=== PATIENT | female | born 1990 | race Caucasian/White ===

== ENCOUNTER 2019-08-16 02:02 | Inpatient (IN) | payer MEDICAID, SELFPAY ==
[2019-08-16] VITALS (10 sets, daily range): BP systolic 135–153; BP diastolic 73–97; PULSE 88–127; RESP 18–24; TEMP 36.2–37.1; O2SAT 90–92; BMI 40.7
--- NOTE | ~2019-08-16 | CT_ITS ---
EXAMINATION: CTA chest PE protocol DATE: 08/16/2019 12:24 INDICATION: Shortness of breath, tachycardia, and elevated d-dimer TECHNIQUE: Computed tomography angiography (CTA) of the chest was performed with 100 mL Omnipaque-350 intravenous contrast timed to evaluate the pulmonary arteries. Coronal maximum intensity projection 3D-reconstructions were created by the technologist. The dose-length product (DLP) was 621.27 mGy-cm. Automated exposure control and iterative reconstruction technique were employed. COMPARISON: None. FINDINGS: The pulmonary arteries are well-opacified. No pulmonary embolism is identified. There are a irspace opacities throughout the lungs, worst in the left lower lobe. There is no pleural effusion or pneumothorax. The heart size is normal. There is mild right paratracheal lymphadenopathy, likely marjorie ctive. The visualized osseous structures are unremarkable. IMPRESSION: 1. No pulmonary embolism. 2. Multifocal airspace opacities, worst in the left lower lobe, consistent with pneumonia. Reviewed, dictated and finalized at location A. [employer]
--- NOTE | ~2019-08-16 | XR_ITS ---
EXAMINATION: XR chest 2V DATE: 08/16/2019 03:04 INDICATION: Cough and wheezing TECHNIQUE: PA and lateral views of the chest are obtained. COMPARISON: 09/12/2014 FINDINGS: There are mild airspace opacities of the lung bases. There is no pleural effusion or pneumo thorax. The cardiomediastinal silhouette is normal. There is mild thoracic spondylosis. IMPRESSION: 1. Mild airspace opacities of the lung bases, consistent with atelectasis versus pneumonia. Reviewed, dictated and finalized at location A. [employer] IMPRESSION: 1. Mild airspace opacities of the lung bases, consistent with atelectasis versu s pneumonia.
--- NOTE | 2019-08-16 02:09 | ED.URI ---
HPI - URI/Sore Throat General Chief Complaint: Upper Respiratory Infection Stated Complaint: fever Source: patient Mode of arrival: ambulatory Limitations: no limitations History of Present Illness HPI Narrative: Ms. Ritter is a 28 year old woman who presents with cold sx of 2 days with cough, congestion, sore throat, body aches and fever. She does have a history of asthma. She does feel that she is wheezing today. No sick contacts. No n/v/d. Related Data Allergies Allergy/AdvReac Type Severity Reaction Status Date / Time tetracycline Allergy Intermediate Unverified 01/20/18 13:41 Review of Systems Constitutional: Constitutional: Reports body ache(s), Denies fatigue, Denies fever(s) and Denies weakness Eyes: Eyes: Denies blurry vision, Denies itchy eyes and Denies other visual disturbances ENT: Reports as per HPI, Denies dizziness, Denies hearing loss, Reports nasal congestion, Reports nasal discharge, Reports sinus pressure and Denies sore throat Cardiovascular: Cardiovascular: Denies chest pain and Denies dyspnea Respiratory: Respiratory: Reports cough, Denies dyspnea and Denies wheezing Gastrointestinal: Gastrointestinal: Denies diarrhea, Denies nausea and Denies vomiting Genitourinary: Genitourinary: Denies difficulty starting urination, Denies dysuria and Denies urinary urgency Musculoskeletal: Musculoskeletal: Denies arthralgias and Denies muscle weakness Integumentary/Breasts: Skin/Breast: Denies rash and Denies wounds Neurologic: Denies dizziness and Denies weakness Psychiatric: Psychiatric: Denies anxiety, Denies depression and Denies suicidal ideation Endocrine: Endocrine: Denies cold intolerance, Denies fatigue and Denies heat intolerance Allergic/Immunologic: Allergic/Immunologic: Denies itchy eyes, Denies seasonal rhinorrhea and Denies wheezing Exam Const: General: cooperative, healthy appearing, no acute distress, well developed and alert; No poor hygiene Nutritional Appearance: average body habitus Orientation/consciousness: oriented to person, oriented to place and oriented to time Limitations: No physical limitations HENMT: Head: normal to inspection Ears: hearing grossly normal bilaterally and external ears normal General nose exam: external nose normal and nasal discharge clear Face and sinus: face symmetric and no abrasions Mouth: Yes oral mucosae normal, Yes lip normal, Yes tongue normal, Yes moist mucous membranes and No drooling Teeth and gingiva: dentition normal and gingiva normal Throat: uvula midline and posterior oropharynx abnormal erythema; no exudates Eyes: General: appearance normal, both eyes and all related structures Periorbital: periorbital findings normal Eyelids: eyelids normal Conjunctivae: conjunctivae normal Pupils: PERRL EOM: EOM intact bilaterally Neck: Neck: normal visual inspection Resp: Effort & Inspection: able to speak in complete sentences and no respiratory distress Auscultation: no crackles, no rhonchi and wheezes Cardio: Jugular venous distension: no JVD Rate: regular rate Rhythm: regular rhythm Heart sounds: no gallops, no murmurs and no rubs Skin: General skin exam: no rashes or lesions noted Trauma: no lacerations or abrasions Neuro: General: oriented to person, oriented to place and oriented to time Cranial nerves: Yes CN's II-XII intact bilaterally and Yes PERRL Cognition (Neuro): normal cognition Speech: normal speech Psych: Appearance: grossly normal Mental Status: mental status grossly normal Affect: normal affect Thought process: normal thought process Course Course Emergency Course: Primary survey revealed a hemodynamically stable woman in no acute distress. Exam shows URI signs and wheezing. Labs, CXR and treatment ordered. Reevaluation(s) Reevaluation #1: Vitals stable. O2 sats were 89 on RA. Requires oxygen to keep sats > 90%. Exacerbation of asthma as working dx. Admission advised. Patient agrees. Time: 03:08 Discharge Plan Discha
[2019-08-16] MEDS: IPRATROPIUM 0.5 MG/ALBUTEROL SULFATE 2.5 MG AMPUL.NEB 3 ML INHALATION ×3 (02:35→19:10)
[2019-08-16 02:42] LABS: Hematocrit 44.8 % (35.0-49.0); Hemoglobin 15.4 g/dL (12.0-15.0); Mean Corpuscular HGB Conc 34.4 g/dL (32.0-36.0); Mean Corpuscular Hemoglobin 31.9 pg (27.0-31.0); Mean Corpuscular Volume 92.8 fL (78.0-102.0); Mean Platelet Volume 9.9 fl (9.2-11.8); Platelet Count Result 250 K/mm3 (150-420); Red Blood Count 4.83 M/mm3 (4.20-5.40); Red Cell Distribution Width 11.5 % (11.6-14.4); White Blood Count 14.7 K/mm3 (4.8-10.8)
[2019-08-16] MEDS: methylPREDNISolone SOD SUCC 125 MG VIAL IV PUSH (02:50)
[2019-08-16 02:59] LABS: Alanine Aminotransferase 26 U/L (14-59); Albumin Level 4.3 g/dL (3.4-5.0); Alkaline Phosphatase 71 U/L (46-116); Anion Gap 18.5 mmol/L (7-16); Aspartate Amino Transferase 21 U/L (15-37); Bilirubin,Total 0.7 mg/dL (0.00-1.00); Blood Urea Nitrogen 12 mg/dL (7-18); CRP 4.3 mg/dL (0.0-0.9); Calcium 8.8 mg/dL (8.5-10.1); Carbon Dioxide 23 mmol/L (21-32); Chloride 105 mmol/L (98-108); Estimated CRCL calculation 117 ml/min; Estimated Glomerular Filt Rate > 60; Glucose 110 mg/dL (70-99); Osmolality Calculated 296 mOsm/kg (285-295); Potassium 3.5 mmol/L (3.5-5.1); Sodium 143 mmol/L (136-145); Total Protein 7.9 g/dL (6.4-8.2)
[2019-08-16 03:02] LABS: Influenza Control Valid (Valid); Lactic Acid 1.5 mmol/L (0.4-2.0)
--- NOTE | 2019-08-16 03:09 | PC.NURSE ---
erp discussed plan of care regarding admission. pt agrees. call to floor for bed assignment
[2019-08-16] MEDS: ONDANSETRON INJ 4 MG/2 ML VIAL IV PUSH (03:17)
--- NOTE | 2019-08-16 03:46 | PC.NURSE ---
PT TAKEN TO FLOOR PER WHEELCHAIR WITH RISA HERBERT. UPDATE ON ALL MEDS AND CARE GIVEN IN ER. PT STABLE AND ALERT.
--- NOTE | 2019-08-16 03:47 | PC.NURSE ---
0315 PT DRY HECECIING, ERP AWARE. ORDER FOR ELIZ.
[2019-08-16] MEDS: ALBUTEROL SULFATE NEB 2.5 MG/3 ML INH INHALATION (05:16)
--- NOTE | 2019-08-16 05:50 | PC.NURSE ---
Patient voiced complaint of muscular chest pain due to coughing rated at level 8 on 0 to 10 scale. Contacted doctor. Doctor gave verbal order for 1x dose of tylenol 3. Reminded doctor nurses had been instructed that doctor's were to enter orders. Doctor stated nurses were allowed to write orders between 2200 and 0700. Wrote order as directed by doctor.
--- NOTE | 2019-08-16 08:15 | PM.IMHP ---
H&P: HPI History of Present Illness Chief complaint: fever Narrative: 28 year old CF had onset of subjective fevers, a non-productive cough with SOB, chills and general malaise 3 days ago after she was exposed to sick contacts. She had used her own home rescue inhalers, for which she has for use for her bronchial asthma, which was diagnosed 5 years ago. Her asthma is usually triggered by seasonal allergies. However, this time, her inhalers could not help improve her breathing, and so she came to the ER. Workup ensued, showing a mildly elevated white count and tachycardia, but clear chest film. She was given a dose of rocephin, steroids and nebs, and admitted for acute asthma exacerbation. She tells that she feels somewhat better and is able to speak longer sentences than what she had earlier. However, walking to the bathroom without O2 on, her O2 sats dropped down to the 80s. She recovered well with O2 on. With her signs and symptoms, a D dimer was obtained and found to be borderline abnormal , which prompted a CTA chest to be obtained. Review of Systems Review of Systems: All systems reviewed & are unremarkable except as noted in HPI and below Constitutional: Constitutional: Reports as per HPI, Reports no additional constitutional complaints, Reports chills, Reports fatigue, Reports fever(s) and Reports malaise Eyes: Eyes: Reports as per HPI and Reports no additional eye complaints ENT: Reports system reviewed and no additional complaints, except as documented and Reports as per HPI Cardiovascular: Cardiovascular: Reports as per HPI and Reports no additional cardiovascular complaints Respiratory: Respiratory: Reports cough, Reports dyspnea and Reports wheezing Gastrointestinal: Gastrointestinal: Reports as per HPI and Reports no additional gastrointestinal complaints Genitourinary: Genitourinary: Reports no additional female genitourinary complaints and Reports as per HPI Musculoskeletal: Musculoskeletal: Reports no additional musculoskeletal complaints, Reports as per HPI and Reports myalgias Integumentary/Breasts: Skin/Breast: Reports system reviewed and no additional complaints, except as docu and Reports as per HPI Neurologic: Reports system reviewed and no additional complaints, except as documented and Reports as per HPI Psychiatric: Psychiatric: Reports no additional psychiatric complaints and Reports as per HPI [facility] Past Medical History Medical History (Updated 08/17/19 @ 04:21 by Adeline Underwood NP) Asthma Tobacco dependence Surgical History Surgical History History of tonsillectomy Family History Family History Grandparent Diabetes mellitus Hypertension Mother Diabetes mellitus Hypertension Father Hypertension Sibling Asthma Social History Social History Smoking packs per day: 0.33 Smoking cigarettes per day: 6.6 Years smoked: 8 Smoking pack-years: 2.64 Smoking status: Current every day smoker Tobacco type: cigarettes Second hand tobacco smoke exposure: No Alcohol intake: current Drinks per week: 1 Substance use: never Substance use type: does not use Gender identity (if verbalized by the patient): Female Spiritual care concerns: No Meds Home Medications and Allergies Home Medications Medication Instructions Recorded Confirmed Type albuterol sulfate [ProAir HFA] 1 inh INHALATION QID PRN MDD 4 08/16/19 08/16/19 History fluticasone propionate [Allergy 2 spray INTRANASAL DAILY 08/16/19 08/16/19 History Relief (fluticasone)] loratadine 10 mg PO DAILY PRN MDD 1 08/16/19 08/16/19 History montelukast 10 mg PO HS 08/16/19 08/16/19 History Allergies Allergy/AdvReac Type Severity Reaction Status Date / Time tetracycline Allergy Intermediate Rash Verified 08/16/19 09:34 Vital Signs Vital Signs -
[2019-08-16] MEDS: methylPREDNISolone SOD SUCC 125 MG VIAL 80 MG IV PUSH (09:21)
--- NOTE | 2019-08-16 09:41 | PC.NURSE ---
SLEEPING. BREATHING WITHOUT DIFF.
--- NOTE | 2019-08-16 10:40 | PC.NURSE ---
URINE SENT TO LAB.PERMIT SINED FOR IV CONTRAST.
[2019-08-16 11:21] LABS: D Dimer 0.77 mg/L (0.19-0.50)
[2019-08-16] MEDS: SODIUM CHLORIDE 0.9% IV 1,000 ML 100 ML IV CONT ×2 (11:23→21:27)
[2019-08-16 11:46] LABS: Pregnancy On Board Control Positive; Urine Pregnancy Test Negative
[2019-08-16 11:47] LABS: Specific Gravity Ur 1.015 (1.010-1.035)
[2019-08-16] MEDS: ALBUTEROL SULFATE NEB 2.5 MG/3 ML INH 5 MG INHALATION (15:27)
--- NOTE | 2019-08-16 22:54 | PM.EVENT ---
Event Note Event Note: Patient states she feels much better than when she was admitted. She is not having any pain at present. She has scattered wheezing bilaterally worse at the bases bilaterally with rales at the bases. I have reviewed the chart and examined the patient. I discussed the patient's care with Malvin Underwood APN and agree with her assessment and plan.
--- NOTE | 2019-08-16 23:42 | PC.NURSE ---
Sleeping, resp even. IV & o2 continue.
[2019-08-17] VITALS (11 sets, daily range): BP systolic 107–140; BP diastolic 70–77; PULSE 70–96; RESP 14–20; TEMP 36.2–37; O2SAT 94–98
[2019-08-17] MEDS: IPRATROPIUM 0.5 MG/ALBUTEROL SULFATE 2.5 MG AMPUL.NEB 3 ML INHALATION ×4 (00:41→18:03)
[2019-08-17] MEDS: ALBUTEROL SULFATE NEB 2.5 MG/3 ML INH 5 MG INHALATION (00:48)
[2019-08-17 05:58] LABS: Basophils Absolute Auto 0.03 K/mm3 (0.00-0.10); Basophils Percent Auto 0.2 % (0.0-1.0); Eosinophils Absolute Auto 0.01 K/mm3 (0.02-0.50); Eosinophils Percent Auto 0.1 % (1.0-6.0); Hematocrit 40.6 % (35.0-49.0); Hemoglobin 13.7 g/dL (12.0-15.0); Immature Granulocyte Absolute 0.17 K/mm3 (0.00-0.00); Immature Granulocyte Percent A 0.9 % (0.0-0.0); Lymphocytes Absolute Auto 1.31 K/mm3 (1.10-4.50); Lymphocytes Percent Auto 7.1 % (18.0-42.0); Mean Corpuscular HGB Conc 33.7 g/dL (32.0-36.0); Mean Corpuscular Hemoglobin 31.6 pg (27.0-31.0); Mean Corpuscular Volume 93.5 fL (78.0-102.0); Mean Platelet Volume 9.8 fl (9.2-11.8); Monocytes Absolute Auto 1.08 K/mm3 (0.10-0.90); Monocytes Percent Auto 5.8 % (2.0-11.0); Neutrophils Percent Auto 85.9 % (50.0-70.0); Platelet Count Result 230 K/mm3 (150-420); Red Blood Count 4.34 M/mm3 (4.20-5.40); Red Cell Distribution Width 11.9 % (11.6-14.4); White Blood Count 18.6 K/mm3 (4.8-10.8)
[2019-08-17 06:08] LABS: Alanine Aminotransferase 19 U/L (14-59); Albumin Level 3.3 g/dL (3.4-5.0); Alkaline Phosphatase 63 U/L (46-116); Anion Gap 13.2 mmol/L (7-16); Aspartate Amino Transferase 16 U/L (15-37); Bilirubin,Total 0.3 mg/dL (0.00-1.00); Blood Urea Nitrogen 13 mg/dL (7-18); Calcium 8.4 mg/dL (8.5-10.1); Carbon Dioxide 24 mmol/L (21-32); Chloride 110 mmol/L (98-108); Estimated CRCL calculation 147 ml/min; Estimated Glomerular Filt Rate > 60; Glucose 102 mg/dL (70-99); Osmolality Calculated 296 mOsm/kg (285-295); Phosphorus 3.5 mg/dL (2.6-4.7); Potassium 4.2 mmol/L (3.5-5.1); Sodium 143 mmol/L (136-145); Total Protein 6.4 g/dL (6.4-8.2)
[2019-08-17] MEDS: SODIUM CHLORIDE 0.9% IV 1,000 ML 100 ML IV CONT ×2 (06:21→16:54)
[2019-08-17] MEDS: methylPREDNISolone SOD SUCC 125 MG VIAL 60 MG IV PUSH (06:30)
--- NOTE | 2019-08-17 09:21 | PM.IMPN ---
Progress Note: A&P Assessment and Plan (1) Asthma exacerbation: Qualifiers: Asthma persistence: intermittent Asthma severity: unspecified severity Qualified Code(s): J45.21 - Mild intermittent asthma with (acute) exacerbation Code(s): J45.901 - Unspecified asthma with (acute) exacerbation Status: Acute Assessment and Plan: - usually triggered by seasonal allergies - given steroids and nebs in the ER with some improvement - continue with nebs and steroids, but begin taper today (2) LLL pneumonia: Code(s): J18.9 - Pneumonia, unspecified organism Status: Acute Assessment and Plan: - not seen in CXR but on CTA - blood cultures pending, await sensitivities - only given a dose of rocephin in the ER - continue with rocephin, and the added azithromycin (3) Tobacco dependence: Code(s): F17.200 - Nicotine dependence, unspecified, uncomplicated Status: Acute Assessment and Plan: - nicotine patch - pt refuses it (4) Leukocytosis: Code(s): D72.829 - Elevated white blood cell count, unspecified Status: Acute Assessment and Plan: - blood cultures pending - continue on rocephin and azithromycin (5) SOB (shortness of breath): Code(s): R06.02 - Shortness of breath Status: Acute Assessment and Plan: 2/2 to asthma and pneumonia improving but nowhere near baseline as yet (6) Asthma: Code(s): J45.909 - Unspecified asthma, uncomplicated Status: Acute Assessment and Plan: - diagnosed 5 years ago - seasonal allergies are trigger - has inhaler at home (7) Elevated d-dimer: Code(s): R79.89 - Other specified abnormal findings of blood chemistry Status: Acute Assessment and Plan: - CTA negative for PE - likely positive because of the presence of pneumonia (8) Acute respiratory failure: Code(s): J96.00 - Acute respiratory failure, unspecified whether with hypoxia or hypercapnia Status: Acute Assessment and Plan: - hypoxic - improved on O2 - trying to wean off O2 Subjective Interval history: Feels slightly better today, trying to be off O2 as much as possible. Still with wheezes. Review of Systems Review of Systems: All systems reviewed & are unremarkable except as noted in HPI and below Constitutional: Constitutional: Reports as per HPI, Reports no additional constitutional complaints, Reports chills, Reports fatigue, Reports fever(s) and Reports malaise Eyes: Eyes: Reports as per HPI and Reports no additional eye complaints ENT: Reports system reviewed and no additional complaints, except as documented and Reports as per HPI Cardiovascular: Cardiovascular: Reports as per HPI, Reports no additional cardiovascular complaints and Reports dyspnea Respiratory: Respiratory: Reports cough, Reports dyspnea and Reports wheezing Gastrointestinal: Gastrointestinal: Reports as per HPI and Reports no additional gastrointestinal complaints Genitourinary: Genitourinary: Reports no additional female genitourinary complaints and Reports as per HPI Musculoskeletal: Musculoskeletal: Reports no additional musculoskeletal complaints, Reports as per HPI and Reports myalgias Integumentary/Breasts: Skin/Breast: Reports system reviewed and no additional complaints, except as docu and Reports as per HPI Neurologic: Reports system reviewed and no additional complaints, except as documented and Reports as per HPI Psychiatric: Psychiatric: Reports no additional psychiatric complaints and Reports as per HPI Endocrine: Endocrine: Reports fatigue Allergic/Immunologic: Allergic/Immunologic: Reports wheezing Exam Const: General: no acute distress Other: very mild conversational dyspnea, follows commands, awake, alert, oriented HENMT: Ears: TM's normal bilaterally Mouth: Yes moist mucous membranes Eyes: General: appearance normal, both eyes and all related structures Sclera: sclerae richard
--- NOTE | 2019-08-17 11:15 | PC.NURSE ---
Suction to NG tube adjusted to med intermittent. NG tube not emptiying contents into canister. NG tube flushed, NG tube cont. to not empty all contents into canister. NG tube advanced 3 inches further, pt. tolerated fair. NG tube flushed well. Suction on medium intermittent, large amount of gastric content emptied into canister. Pt. resting with hob elevated.
--- NOTE | 2019-08-17 13:31 | PM.EVENT ---
Event Note Event Note: I saw the patient with Adeline. I agree with her assessment and plan.
--- NOTE | 2019-08-17 18:25 | PC.NURSE ---
PT VISITING WITH MOM IN ROOM. TALKING ON FACETIME WITH SON ON PHONE. NO DISTRESS. NEB TREATMENT COMPLETE.
[2019-08-17] MEDS: methylPREDNISolone SOD SUCC 125 MG VIAL 40 MG IV PUSH (20:51)
[2019-08-18] VITALS (7 sets, daily range): BP systolic 113–126; BP diastolic 71–79; PULSE 68–91; RESP 14–18; TEMP 36.5–36.7; O2SAT 97
[2019-08-18] MEDS: IPRATROPIUM 0.5 MG/ALBUTEROL SULFATE 2.5 MG AMPUL.NEB 3 ML INHALATION ×2 (00:05→05:31)
[2019-08-18] MEDS: SODIUM CHLORIDE 0.9% IV 1,000 ML 100 ML IV CONT (03:01)
[2019-08-18 05:19] LABS: Basophils Absolute Auto 0.01 K/mm3 (0.00-0.10); Basophils Percent Auto 0.1 % (0.0-1.0); Hematocrit 39.3 % (35.0-49.0); Hemoglobin 13.2 g/dL (12.0-15.0); Immature Granulocyte Absolute 0.06 K/mm3 (0.00-0.00); Immature Granulocyte Percent A 0.5 % (0.0-0.0); Lymphocytes Absolute Auto 1.21 K/mm3 (1.10-4.50); Lymphocytes Percent Auto 9.1 % (18.0-42.0); Mean Corpuscular HGB Conc 33.6 g/dL (32.0-36.0); Mean Corpuscular Hemoglobin 31.8 pg (27.0-31.0); Mean Corpuscular Volume 94.7 fL (78.0-102.0); Mean Platelet Volume 9.7 fl (9.2-11.8); Monocytes Absolute Auto 0.54 K/mm3 (0.10-0.90); Monocytes Percent Auto 4.1 % (2.0-11.0); Neutrophils Absolute Auto 11.5 K/mm3 (1.7-7.2); Neutrophils Percent Auto 86.2 % (50.0-70.0); Platelet Count Result 237 K/mm3 (150-420); Red Blood Count 4.15 M/mm3 (4.20-5.40); Red Cell Distribution Width 11.9 % (11.6-14.4); White Blood Count 13.3 K/mm3 (4.8-10.8)
[2019-08-18 05:39] LABS: Alanine Aminotransferase 20 U/L (14-59); Albumin Level 3.3 g/dL (3.4-5.0); Alkaline Phosphatase 62 U/L (46-116); Aspartate Amino Transferase 19 U/L (15-37); Bilirubin,Total 0.2 mg/dL (0.00-1.00); Blood Urea Nitrogen 16 mg/dL (7-18); Calcium 8.1 mg/dL (8.5-10.1); Carbon Dioxide 23 mmol/L (21-32); Chloride 108 mmol/L (98-108); Estimated CRCL calculation 143 ml/min; Estimated Glomerular Filt Rate > 60; Glucose 126 mg/dL (70-99); Magnesium 1.8 mg/dL (1.8-2.4); Osmolality Calculated 295 mOsm/kg (285-295); Phosphorus 3.3 mg/dL (2.6-4.7); Sodium 141 mmol/L (136-145)
--- NOTE | 2019-08-18 08:00 | PC.NURSE ---
Eating breakfast, no distress
[2019-08-18] MEDS: methylPREDNISolone SOD SUCC 125 MG VIAL 40 MG IV PUSH (09:29)
--- NOTE | 2019-08-18 10:35 | PC.NURSE ---
Resting in bed, fluids infusing, denies needs, no distress noted
--- NOTE | 2019-08-18 12:00 | PC.NURSE ---
Lunch tray to patient, discharge instructions pending
--- NOTE | 2019-08-18 12:45 | PC.NURSE ---
Discharge instructions reviewed with patient, no questions or concerns voiced
--- NOTE | 2019-08-18 13:25 | PC.NURSE ---
Discharge to home with significant other, all personal items returned to patient, no questions or concerns upon dc home
--- NOTE | 2019-08-18 14:17 | PM.DS ---
DS: Diagnosis Admitting Diagnosis Admitting Diagnosis: Mild intermittent asthma with (acute) exacerbation <Sharon Aguayo NP - Last Filed: 08/18/19 15:20> Discharge Diagnosis (1) Asthma exacerbation: Qualifiers: Asthma persistence: intermittent Asthma severity: unspecified severity Qualified Code(s): J45.21 - Mild intermittent asthma with (acute) exacerbation <Sharon Aguayo NP - Last Filed: 08/18/19 15:20> Code(s): J45.901 - Unspecified asthma with (acute) exacerbation <Sharon Aguayo NP - Last Filed: 08/18/19 15:20> Status: Acute <Sharon Aguayo NP - Last Filed: 08/18/19 15:20> Assessment and Plan: - likely triggered this time by Viral exposure and Stress. Her Eosinophils are not elevated at all per her labwork. - usually triggered by seasonal allergies in the past. - instructed her to avoid Dust and other triggers at discharge. - given steroids and nebs in the ER with some improvement - continue with nebs and steroids, tapered from Q8 to Q 12 hour IV steroids - no crackles or coarse sounds per lung auscultation today, wheezing present. - ambulated around hospital floor, no SOB or dyspnea on exertion. - no chest pain - will discharge on PO steroid taper and oral antibiotics <Sharon Aguayo NP - Last Filed: 08/18/19 15:20> (2) LLL pneumonia: Code(s): J18.9 - Pneumonia, unspecified organism <Sharon Aguayo NP - Last Filed: 08/18/19 15:20> Status: Acute <Sharon Aguayo NP - Last Filed: 08/18/19 15:20> Assessment and Plan: - not seen in CXR but CTA clearly showed evidence of pneumonia - blood cultures x2 pending, Strep culture pending - discussed with lab and results remain pending - instructed patient to F/U on those results after discharge. - continued with Rocephin and IV azithromycin - discharged home on oral azithromycin. <Sharon Aguayo NP - Last Filed: 08/18/19 15:20> (3) Tobacco dependence: Code(s): F17.200 - Nicotine dependence, unspecified, uncomplicated <Sharon Aguayo NP - Last Filed: 12/17/19 15:20> Status: Acute <Sharon Aguayo NP - Last Filed: 08/18/19 15:20> Assessment and Plan: - nicotine patch - pt refuses it - no s/s of nicotine withdrawal at this time. - encouraged her to discuss further methods to stop smoking with her PCP - there are group meeting and medications to help her with smoking cessation. <Sharon Aguayo NP - Last Filed: 08/18/19 15:20> (4) Leukocytosis: Code(s): D72.829 - Elevated white blood cell count, unspecified <Sharon Aguayo NP - Last Filed: 08/18/19 15:20> Status: Acute <Sharon Aguayo NP - Last Filed: 08/18/19 15:20> Assessment and Plan: - blood cultures x2 pending, Strep culture pending - discussed with lab and results remain pending - instructed patient to F/U on those results after discharge. - continued with Rocephin and IV azithromycin - discharged home on oral azithromycin. - may also be due to steroid use now. - instructed to follow up with PCP Dr. Castro. <Sharon Aguayo NP - Last Filed: 08/18/19 15:20> (5) SOB (shortness of breath): Code(s): R06.02 - Shortness of breath <Sharon Aguayo NP - Last Filed: 08/18/19 15:20> Status: Acute <Sharon Aguayo NP - Last Filed: 08/18/19 15:20> Assessment and Plan: RESOLVED. 2/2 to asthma and pneumonia improving on room air with O2 sats >94% now. encouraged to ambulate around the floor of the hospital to see if any dyspnea concerns - none noted with ambulation - patient wanting to go home today. <Sharon Aguayo NP - Last Filed: 08/18/19 15:20> (6) Asthma: Code(s): J45.909 - Unspecified asthma, uncomplicated <Sharon Aguayo NP - Last Filed: 08/18/19 15:20> Status: Acute <Sharon Aguayo NP - Last Filed: 12/17/19 15:20> Assessment and Plan: - diagnosed 5 years ago - seasonal allergies
--- NOTE | 2019-08-28 13:13 | PC.NURSE ---
Discharge Call BAck unable to contact patient.
== END 2019-08-18 13:25 | disposition home or self-care (01) | DRG 141 ==
LOC: CHSED 03:09 → CHS2ND 03:32
PROVIDERS: Nurse Practitioner Acute Care; Admitting Provider Family Medicine; Emergency Provider Family Medicine; Visit Provider Family Medicine
DX: J45.901 Unspecified asthma with (acute) exacerbation (principal); J18.9 Pneumonia, unspecified organism; J96.00 Acute respiratory failure, unspecified whether with hypoxia or hypercapnia; R79.89 Other specified abnormal findings of blood chemistry; Z72.0 Tobacco use; F17.210 Nicotine dependence, cigarettes, uncomplicated
CPT/HCPCS: 36415; 71046; 71275; 80053; 81025; 83605; 83735; 84100; 85025; 85027; 85380; 86140; 87040; 87081; 87804; 87880; 94640; 96365; 96375; 99283; 99285; A9270; J0456; J0696; J2405; J2930; J7030; Q9965

== ENCOUNTER 2022-07-10 07:41 | Outpatient (CLI) | payer BC, SELFPAY ==
[2022-07-10 09:11] LABS: Basophils Absolute Auto 0.02 K/mm3 (0.00-0.10); Basophils Percent Auto 0.2 % (0.0-1.0); Eosinophils Absolute Auto 0.07 K/mm3 (0.02-0.50); Eosinophils Percent Auto 0.8 % (1.0-6.0); Hematocrit 41.3 % (35.0-49.0); Hemoglobin 14.5 g/dL (12.0-15.0); Immature Granulocyte Absolute 0.03 K/mm3 (0.00-0.00); Immature Granulocyte Percent A 0.4 % (0.0-0.0); Lymphocytes Absolute Auto 1.47 K/mm3 (1.10-4.50); Lymphocytes Percent Auto 17.3 % (18.0-42.0); Mean Corpuscular HGB Conc 35.1 g/dL (32.0-36.0); Mean Corpuscular Hemoglobin 32.7 pg (27.0-31.0); Mean Corpuscular Volume 93.2 fL (78.0-102.0); Mean Platelet Volume 9.7 fl (9.2-11.8); Monocytes Absolute Auto 0.41 K/mm3 (0.10-0.90); Monocytes Percent Auto 4.8 % (2.0-11.0); Neutrophils Absolute Auto 6.5 K/mm3 (1.7-7.2); Neutrophils Percent Auto 76.5 % (50.0-70.0); Platelet Count Result 232 K/mm3 (150-420); Red Blood Count 4.43 M/mm3 (4.20-5.40); Red Cell Distribution Width 11.9 % (11.6-14.4); White Blood Count 8.5 K/mm3 (4.8-10.8)
[2022-07-10 09:12] LABS: Appearance Urine Clear (Clear); Bilirubin Urine Negative (Negative); Blood Urine Negative (Negative); Glucose Urine UA Trace (Negative); Ketones Urine Negative (Negative); Leukocyte Esterase Ur Negative (Negative); Nitrate Urine Negative (Negative); Protein Urine Negative (Negative); Specific Grav Ur 1.015 (1.010-1.020); Urobilinogen Urine 0.2 mg/dL (0.2-1.0); pH Urine 7.5 (5.0-8.0)
[2022-07-10 09:43] LABS: Add Urine Microscopic? YES; Color Urine Light Yellow (Yellow); RBC Urine None seen /hpf (0-2); Squamous Epithelial Cell Urine Few /hpf (Few); WBC Urine 0-3 /hpf (0-3)
[2022-07-10 09:44] LABS: Bacteria Urine Trace /hpf
[2022-07-10 10:07] LABS: Glucose 1 Hour PP 50gm Dose 110 mg/dL (70-130)
[2022-07-10 10:08] LABS: HIV 1 P24 AG Negative (Negative); HIV 1/2 AB Negative (Negative)
[2022-07-12 14:22] LABS: RPR Screen Reactive (Non-Reactive)
[2022-07-12 14:36] LABS: RPR Titer Reactive 1:1
[2022-07-13 10:43] LABS: Rubella IgG Antibody 1.31 Index
[2022-07-13 12:13] LABS: Hepatitis B Surface Antigen Nonreactive (Nonreactive); Hepatitis C Signal to Cutoff 0.01 ratio (<1.00); Hepatitis C Virus Antibody Nonreactive (Nonreactive)
[2022-07-13 21:25] LABS: FTA-ABS Nonreactive (Nonreactive)
== END 2022-07-10 07:42 | disposition home or self-care (01) ==
LOC: CHSLAB 07:46
PROVIDERS: PCP Family Medicine; Visit Provider Advanced Practice Midwife
DX: Z36.89 Encounter for other specified antenatal screening (principal)
CPT/HCPCS: 36415; 81001; 82947; 85025; 86592; 86593; 86703; 86762; 86780; 86850; 86900; 86901; 87086